=== PATIENT | male | born 2005 | race Caucasian/White ===

== ENCOUNTER 2025-06-26 08:29 | Emergency (ER) | payer SELFPAY ==
[2025-06-26 08:54] LABS: BASOPHILS ABSOLUTE AUTO 0.0 K/mm3 (0.0-0.2); BASOPHILS PERCENT AUTO 0.6 % (0.0-1.0); EOSINOPHILS ABSOLUTE AUTO 0.1 K/mm3 (0.0-0.4); EOSINOPHILS PERCENT AUTO 1.9 % (0.0-6.0); IMMATURE GRAN ABSOLUTE AUTO 0.07 K/mm3 (0.00-0.05); IMMATURE GRAN PERCENT AUTO 1.0 % (0.0-0.4); LYMPHOCYTES ABSOLUTE AUTO 3.0 K/mm3 (1.0-4.8); LYMPHOCYTES PERCENT AUTO 41.1 % (24.0-44.0); MEAN PLATELET VOLUME 10.1 fl (9.4-12.4); MONOCYTES ABSOLUTE AUTO 0.6 K/mm3 (0.0-0.8); MONOCYTES PERCENT AUTO 8.2 % (0.0-8.0); NEUTROPHILS ABSOLUTE AUTO 3.4 K/mm3 (1.8-7.7); NEUTROPHILS PERCENT AUTO 47.2 % (41.0-71.0); NRBC ABSOLUTE 0.00 (0.00-0.02); NRBC PERCENT 0.0 % (0.0-0.2); PLATELET COUNT,PLT 284 K/mm3 (150-400); RED BLOOD CELL COUNT 5.67 M/mm3 (4.52-5.90); WHITE BLOOD CELL COUNT,WBC 7.20 K/mm3 (3.9-11.3)
[2025-06-26] MEDS: Sodium Chloride 0.9% 10 ML Syringe FLUSH PRN (09:03)
[2025-06-26 09:26] LABS: A/G RATIO 1.2 (1-2); ALANINE AMINOTRANSFERASE,ALT 90.0 U/L (16-63); ASPARTATE AMNIOTRANSFERASE,AST 112.0 U/L (15-37); BLOOD UREA NITROGEN,BUN 13.0 mg/dL (7-18); CARBON DIOXIDE,CO2 27.0 mEq/L (21-32); CHLORIDE,CL 103.0 mEq/L (98-107); CREATININE 0.8 mg/dL (0.7-1.3); EST CRCL DRUG DOSING (CG) 118.54 mL/min; ESTIMATED GFR 130.0 mL/min (>60); GLUCOSE RANDOM 115.0 mg/dL (70-99); POTASSIUM,K 3.7 mEq/L (3.5-5.1); PROTEIN TOTAL,TP 7.8 g/dl (6.4-8.2); SODIUM,NA 141.0 mEq/L (136-145)
[2025-06-26 09:38] LABS: BILIRUBIN TOTAL 0.8 mg/dL (0.2-1.0)
[2025-06-26] MEDS: Iopamidol 612 MG/ML 100 ML Bottle IVPUSH ONE (10:48)
[2025-06-26] MEDS: Sodium Chloride 0.9% 10 ML Syringe FLUSH ONE (10:48)
[2025-06-26] MEDS: Propofol 200 MG/20 ML SDV IVPUSH ONE (12:07)
== END 2025-06-26 13:29 | disposition home or self-care (01) ==
LOC: JD.ED 08:29
DX: S52.611A Displaced fracture of right ulna styloid process, initial encounter for closed fracture (principal); S62.367A Nondisplaced fracture of neck of fifth metacarpal bone, left hand, initial encounter for closed fracture; S52.591A Other fractures of lower end of right radius, initial encounter for closed fracture; W11.XXXA Fall on and from ladder, initial encounter
CPT/HCPCS: 25605; 36415; 70450; 71046; 72125; 73100; 73110; 73130; 74177; 80053; 83690; 85025; 96374; 96376; 99152; 99285; J2704; Q9967; 99284; J1171